=== PATIENT | female | born 1940 | race Caucasian/White ===

== ENCOUNTER 2021-02-24 12:35 | Day surgery (SDC) | payer MEDICARE, MEDICAID ==
[2021-02-24] MEDS ORDERED: fentaNYL 100 MCG/2 ML SDV IV ONE (12:36)
[2021-02-24] MEDS ORDERED: Dexmedetomidine 200 MCG/2 ML SDV IV ONE (12:36)
[2021-02-24] MEDS ORDERED: ceFAZolin 1 GM Vial IV ONE (12:36)
[2021-02-24] MEDS ORDERED: Lidocaine 1% PF 2 ML SDV INJECT ONE (12:36)
[2021-02-24] MEDS ORDERED: Propofol 200 MG/20 ML SDV IV ONE (12:36)
[2021-02-24] MEDS ORDERED: Lactated Ringers 1,000 ML IV ONE (12:36)
[2021-02-24] MEDS ORDERED: Midazolam 1 MG/ML 2 ML SDV IV ONE (12:36)
[2021-02-24] MEDS ORDERED: Lactated Ringers 1,000 ML IV SCH (12:45)
[2021-02-24] MEDS ORDERED: Sodium Chloride 0.9% 10 ML Syringe FLUSH PRN (12:45)
--- NOTE | 2021-02-24 14:27 | PCM.PN ---
- General Info Date of Service: 02/24/21 - Review of Systems Systems Review Comment:: 80-year-old female here for excision of right breast mass and right axillary mass. Patient has been clearly informed that these are malignant and more extensive surgery is indicated but she steadfastly states that she only wants the 2 masses removed and no other procedure performed. The site of the right breast and right axillary mass is confirmed with the patient and marked. The proposed procedure is again discussed with her along with expectations and instructions. Her recent medical evaluation has been reviewed and no significant changes are noted. She agrees to proceed. - Patient Data Vitals - Most Recent: Last Vital Signs Temp 98.6 F 02/24/21 13:07 Pulse 79 02/24/21 13:07 Resp 16 02/24/21 13:07 BP 156/88 H 02/24/21 13:07 Pulse Ox 95 02/24/21 13:07 Weight - Most Recent: 134 lb Med Orders - Current: Current Medications Lactated Ringer's (Ringers, Lactated) 1,000 mls @ 125 mls/hr IV ASDIRECTED AMADOU Last Admin: 02/24/21 13:17 Dose: 125 mls/hr Documented by: Sodium Chloride (Sodium Chloride 0.9% 10 Ml Syringe) 10 ml FLUSH ASDIRECTED PRN PRN Reason: Keep Vein Open Sepsis Event Note - Focused Exam Vital Signs: Vital Signs Temp Pulse Resp BP Pulse Ox 02/24/21 13:07 98.6 F 79 16 156/88 H 95 - Problem List Review Problem List Initiated/Reviewed/Updated: Yes - My Orders Last 24 Hours: My Active Orders 02/23/21 13:59 Resuscitation Status Routine 02/24/21 Breakfast Nothing Per Oral Diet [DIET] 02/24/21 12:45 Patient to Empty Bladder [RC] ASDIRECTED RT Incentive Spirometry [RC] ASDIRECTED Verify Patient Consent Obtain [RC] ASDIRECTED Lactated Ringers [Ringers, Lactated] 1,000 ml IV ASDIRECTED Sodium Chloride 0.9% [Saline Flush] 10 ml FLUSH ASDIRECTED PRN Peripheral IV Insertion Adult [OM.PC] Routine Sequential Compression Device [OM.PC] Routine - Assessment Assessment:: Right breast mass Right axillary mass - Plan Plan:: Excision of right breast mass and right axillary mass
[2021-02-24] MEDS ORDERED: Bupivacaine 0.5% 30 ML SDV INJECT ONE (14:45)
[2021-02-24] MEDS ORDERED: Lidocaine 1% with EPINEPHrine 1:100,000 20 ML MDV INJECT ONE (14:45)
--- NOTE | 2021-02-24 16:16 | PCM.OPNOTE ---
- General Post-Op/Procedure Note Date of Surgery/Procedure: 02/24/21 Operative Procedure(s): Excision Right Breast Mass. Excision Right Axillary Lymph Nodes Findings: Large Firm Mass lateral aspect of Right Breast Multiple enlarged lymph nodes right axilla Pre Op Diagnosis: Ca Right Breast with Axillary metastasis Post-Op Diagnosis: Same Anesthesia Technique: Local, MAC Primary Surgeon: Shaka Cho Pathology: Right breast mass Right Axillary Lymph Nodes EBL in mLs: 25 Surgical Drain/Tube Type: Jesus Complications: None Condition: Good
[2021-02-24] MEDS ORDERED: Acetaminophen/HYDROcodone 325-5 MG Tab PO ONE (16:48)
--- NOTE | 2021-02-24 18:41 | OR ---
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 OPERATION PERFORMED: Excision of right breast mass and excision of enlarged right axillary nodes. INDICATIONS FOR SURGERY: This 80-year-old female has developed an enlarging mass in the lateral aspect of her right breast. She has also developed palpable lymph nodes in the right axilla. She has gone on to have biopsy which confirms a carcinoma of the right breast. She has had extensive discussion regarding recommendations for treatment for this, and the patient has decided and has clearly expressed that she wants only excision of the right breast mass and excision of the palpable lymph nodes in the right axilla. As per patient's request, these procedures were planned today. FINDINGS: In the lateral aspect of the right breast, there is a firm 3 cm mass. The adjacent breast tissue appears unremarkable. In the right axilla, palpable lymph nodes are identified and upon excision at least 3 enlarged nodes up to 2 cm in size are removed from the right axilla. PROCEDURE IN DETAIL: The patient was taken to the operating room. She was given IV sedation, and the right axilla and breast are sterilely prepped and draped. The skin over the palpable right breast mass is infiltrated with xylocaine and Marcaine mix, and a transversely oriented elliptical incision is made over this mass. Careful cautery dissection was then used to excise the mass in its entirety with dissection being carried out through grossly normal fatty and breast tissue. Once mass had been completely freed, it was removed and will be submitted for pathology. Full hemostasis of the right breast wound is assured with use of 2-0 Vicryl suture ligatures as well as cautery. With good hemostasis and after copious irrigation of the wound, the incision was closed by approximating the subcutaneous tissue with interrupted 4-0 Vicryl and the skin with interrupted 4-0 Prolene. A Jesus drain is left exiting the lateral aspect of the incision and this was secured to the skin with a 2-0 silk. Attention was then turned to the right axilla where after local anesthesia had been administered, a transversely oriented linear incision was made in the skin. Dissection into the axillary space was then carried out and multiple enlarged nodes approximating 2 cm in size are then dissected free and removed. Dissection was carried out with cautery as well as sharp dissection, and all the tissue removed is submitted for pathology. Good hemostasis in the wound is assured with the use of 2-0 Vicryl suture ligatures and ties. Once the palpable lymph nodes had been removed from the right axilla, this tissue was also submitted for pathology, and the wound was irrigated with water and closed by approximating the subcutaneous tissue with a 4-0 Vicryl and the skin with running 4-0 Vicryl subcuticular stitch. A small Jesus drain was left exiting through the lateral aspect of this incision as well and it was secured to the skin with 2-0 silk. Sterile dressings were placed. The patient was then taken from the operating room in satisfactory condition. ESTIMATED BLOOD LOSS: 25 mL. COMPLICATIONS: None. PROGNOSIS: Good. /[id number] YANA/PHANI
== END 2021-02-24 18:02 | disposition home or self-care (01) ==
LOC: FB.SDS 12:35
PROVIDERS: ATTEND Surgery
DX: C50.911 Malignant neoplasm of unspecified site of right female breast (principal); C77.3 Secondary and unspecified malignant neoplasm of axilla and upper limb lymph nodes; Z17.0 Estrogen receptor positive status [ER+]; Z79.899 Other long term (current) drug therapy; Z88.0 Allergy status to penicillin
CPT/HCPCS: 00400; 19120; 38525; 88307; 88360; A9270; J0690; J2250; J2704; J3010; J3490; J7120